=== PATIENT | female | born 1985 | race Two or more races ===

== ENCOUNTER 2025-06-28 11:27 | Emergency (ER) | payer MEDICAID, SELFPAY ==
[2025-06-28 11:27] VITALS: BMI 47.5
[2025-06-28 11:58] VITALS: BP 140/92; PULSE 86; RESP 18; TEMP 37.4; O2SAT 95
--- NOTE | 2025-06-28 12:21 | XR_ITS ---
Examination: Pelvic ultrasound, transabdominal, complete Technique: Transabdominal ultrasound of the pelvis performed using grayscale imaging Date and time of exam: June 28, 2025, 1237 hrs. Indications: Intermittent vaginal bleeding beginning today. Findings: Uterus 10.2 cm endometrial stripe 0.4 cm No uterine mass or intrauterine gestation. Right ovary 4.1 cm arterial flow. Left ovary 3.5 cm arterial flow Impression: Negative study
--- NOTE | 2025-06-28 12:23 | PD.EDRME ---
Rapid Medical Screening Exam E Arrival date/time: 06/28/25 11:27 This this is a 40-year-old female that comes into the emergency room with complaints of right lower pelvic pain. Patient reports that she currently is on her menstrual cycle. Patient states her menstrual cycle was irregular this past month. Patient states that when she was not on her menstrual cycle she was spotting. Patient reports history of ovarian cyst. Patient reports lower back pain patient states that this started mainly in March. 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 Patient states that the pain clinic got better on its own but recently started having more pain. Patient sitting more at home. Patient reports she is not working right now. Patient denies fever, nausea, vomiting, diarrhea. I have greeted and performed a focused initial assessment of this patient. Initial appropriate labs ordered at this time. A comprehensive ED assessment and evaluation of the patient and analysis of all test and completion of medical decision making process will be conducted by additional ED provider. . Chief Complaint: Urogenital-Female Time Seen by Provider: 06/28/25 12:02 Vital signs: Vital Signs Temperature 99.4 F 06/28/25 11:58 Pulse Rate 86 06/28/25 11:58 Respiratory Rate 18 06/28/25 11:58 Blood Pressure 140/92 H 06/28/25 11:58 Pulse Oximetry (%) 95 06/28/25 11:58 Oxygen Delivery Method Room Air 06/28/25 11:58
[2025-06-28 12:52] LABS: Collection Type, Urine Voided
[2025-06-28 13:13] LABS: HCG Qualitative,Urine Negative
[2025-06-28 13:14] LABS: Basophils # (Auto) 0.1 Thou/mm3 (0.0-0.2); Basophils % (Auto) 1 % (0-2.5); Eosinophils # (Auto) 0.1 Thou/mm3 (0.0-0.5); Eosinophils % (Auto) 1 % (0-10); Hematocrit 38.4 % (36.0-46.0); Hemoglobin 12.9 g/dL (12.0-16.0); Immature Granulocytes Auto 0.09 Thou/mm3 (0.00-0.00); Lymphocytes # (Auto) 3.2 Thou/mm3 (1.0-4.8); Lymphocytes % (Auto) 31 % (10-50); Mean Corpuscular HGB Conc 33.6 g/dl (31.0-37.0); Mean Corpuscular Hemoglobin 29.8 pg (25.0-35.0); Mean Corpuscular Volume 89 fL (80-100); Monocytes # (Auto) 0.9 Thou/mm3 (0.0-0.8); Monocytes % (Auto) 9 % (0-12); Neutrophils # (Auto) 6.1 Thou/mm3 (1.8-7.7); Neutrophils % (Auto) 58 % (37-80); Nucleated Red Blood Cell # 0.00 Thou/mm3 (0.00-0.00); Nucleated Red Blood Cell % 0 /100 WBC (0); Platelet Count 315 Thou/mm3 (140-440); RDW Standard Deviation 40.9 fL (36.4-46.3); Red Blood Count 4.33 Miln/mm3 (4.00-5.20); White Blood Count 10.5 Thou/mm3 (3.6-11.0)
[2025-06-28 13:18] LABS: Bilirubin,Urine Negative (Negative); Blood,Urine 3+ (Negative); Clarity,Urine Clear (Clear/Hazy); Color,Urine Lt-Yellow (Lt Yel-Yel); Culture Indicated,Urine Not Indicated; Glucose, Urine Negative (Negative); Ketones,Urine Negative (Negative); Leukocyte Esterase,Urine Positive (Negative); Nitrite,Urine Negative (Negative); PH,Urine 6.5 (5.0-7.0); Protein,Urine Negative (Neg - Trace); RBC,Urine 5 /hpf (0-3); Specific Gravity,Urine 1.018 (1.001-1.035); Squamous Epithelial Cell,Urine 1 /hpf (0-5); Urobilinogen,Urine Negative mg/dL (0.0-1.0); WBC,Urine 3 /hpf (0-5)
[2025-06-28 13:36] LABS: Alanine Aminotransferase 16 U/L (10-49); Albumin, Serum 4.2 gm/dL (3.5-5.0); Albumin/Globulin Ratio 1.2 (1.2-2.2); Alkaline Phosphatase 61 U/L (46-116); Anion Gap 11 (7-16); Aspartate Amino Transferase 18 U/L (0-34); BUN/Creatinine Ratio 13 Ratio (12-20); Bilirubin,Total 0.2 mg/dL (0.3-1.2); Blood Urea Nitrogen 8 mg/dL (9-23); Calcium 9.1 mg/dL (8.3-10.6); Calcium (Corrected) 9.1 mg/dL (8.5-10.1); Carbon Dioxide 25.1 mMol/L (20.0-31.0); Chloride 105 mMol/L (98-107); Creatinine (Component) 0.6 mg/dL (0.6-1.3); Estimated Creatinine Clearance 155.0 mL/min (>60); Globulin 3.5 gm/dL (2.3-3.5); Glucose 79 mg/dL (74-106); Osmolality,Calculated 278 (275-295); Potassium 3.5 mMol/L (3.4-5.1); Sodium 141 mMol/L (136-145); Total Protein 7.7 gm/dL (5.7-8.2); eGFR > 60 See Note
--- NOTE | 2025-06-28 14:12 | EDNOTE_ITS ---
ED Female Urogenital RME/HPI General Chief complaint: Urogenital-Female Stated complaint: PELVIC PAIN/SPOTTING x 1 MONTH Time Seen by Provider: 06/28/25 12:02 Arrival date/time: 06/28/25 11:27 RME / HPI RME / HPI Narrative: 06/28/25 11:27 This this is a 40-year-old female that comes into the emergency room with complaints of right lower pelvic pain. Patient reports that she currently is on her menstrual cycle. Patient states her menstrual cycle was irregular this past month. Patient states that when she was not on her menstrual cycle she was spotting. Patient reports history of ovarian cyst. Patient reports lower back pain patient states that this started mainly in March. 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 Patient states that the pain clinic got better on its own but recently started having more pain. Patient sitting more at home. Patient reports she is not working right now. Patient denies fever, nausea, vomiting, diarrhea. I have greeted and performed a focused initial assessment of this patient. Initial appropriate labs ordered at this time. A comprehensive ED assessment and evaluation of the patient and analysis of all test and completion of medical decision making process will be conducted by additional ED provider. . Related Data Allergies Allergy/AdvReac Type Severity Reaction Status Date / Time No Known Allergies Allergy Verified 06/28/25 11:29 Course Quality Measures none Orders Category Date Time Status US pelvic complete Stat Exams 06/28/25 12:21 Completed CBC Stat Lab 06/28/25 13:03 Completed Comprehensive Metabolic Panel Stat Lab 06/28/25 13:03 Completed HCG Qualitative,Urine Stat Lab 06/28/25 12:37 Completed Urinalysis, C/S if Indicated Stat Lab 06/28/25 12:37 Completed Vital Signs Vital signs: Vital Signs Temperature 99.4 F 06/28/25 11:58 Pulse Rate 86 06/28/25 11:58 Respiratory Rate 18 06/28/25 11:58 Blood Pressure 140/92 H 06/28/25 11:58 Pulse Oximetry (%) 95 06/28/25 11:58 Oxygen Delivery Method Room Air 06/28/25 11:58 Urogenital - Female MDM Narrative MDM Narrative:: Patient is a 40-year-old female that is in the emergency department with concerns of right-sided pelvic pain. Vital signs and exam as listed. Prior provider evaluated patient. Ordered labs pelvic ultrasound offered medication for symptom relief. Concern for ovarian torsion, ovarian cyst, , metabolic disturbance among others. Labs without acute hematologic or significant metabolic abnormality. Patient is non. Urinalysis without evidence of leuk esterase, 5 RBCs, 3 WBCs and bacteria. Less likely infected. Pelvic ultrasound remarkable. On re-evaluation patient symptoms well controlled, she is HD stable, NAD. Will dc to home with close return precautiosn and pcp follow up Patient data External records reviewed:: [facility] previous records Clinical information provided by:: patient Social determinants that could affect healthcare access:: none Patient has the following chronic illnesses:: none How is presenting disease/condition affected by chronic disease/condition?: no chronic disease Evaluation data The following diagnostics were reviewed and interpreted by me:: lab results and radiology exam(s) Lab and/or radiology exams considered but not ordered:: none Interpretation Summary: see mdm Medications / Prescriptions Medications or Prescriptions considered but not ordered:: none Medication administrations:: see below Consultations Consultation(s) initiated? (list below): No Diagnosis Urogenital Female Differential Diagnosis: other (see mdm ) Most likely diagnosis given after review of the tests above:: perlvic pain Admission Indicated Admission indicated?: not indicated Admission Request Was there a request for admission?: No Disposition Plan Disposition Plan: Discharge Discharge Attestation Discharge Attestation: The patient and all family members were given an opportunity to ask questions and understood the discharge instructions. Discharge instructions specifically effects, indications for sooner follow up or return to the emergency department, and the expected course of current diagnosis. Patient condition: Stable Discharge Plan Plan Patient Disposition: HOME (Self Care) Prescriptions/Referrals Referrals: Marisela Mckee MD [Primary Care Provider] - In 1 week Problem List Clinical Impression: Pelvic pain Patient/Caregiver Discharge Instructions Education Materials: Abdominal Pain Additional Instructions: It is important that you establish care with a sample maker original to discuss your abnormal menstrual cycles as well as for pelvic pain. Return immediately for worsening symptoms or new symptoms of concern Print Language: Comoran Stand Alone Forms: [employer] Info., Patient Portal Info Letter
--- NOTE | 2025-06-28 14:24 | EDNOTE_ITS ---
ED Female Urogenital RME/HPI General Chief complaint: Urogenital-Female Stated complaint: PELVIC PAIN/SPOTTING x 1 MONTH Time Seen by Provider: 06/28/25 12:02 Arrival date/time: 06/28/25 11:27 Limitations: no limitations RME / HPI RME / HPI Narrative: 06/28/25 11:27 This this is a 40-year-old female that comes into the emergency room with complaints of right lower pelvic pain. Patient reports that she currently is on her menstrual cycle. Patient states her menstrual cycle was irregular this past month. Patient states that when she was not on her menstrual cycle she was spotting. Patient reports history of ovarian cyst. Patient reports lower back pain patient states that this started mainly in March. 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 Patient states that the pain clinic got better on its own but recently started having more pain. Patient sitting more at home. Patient reports she is not working right now. Patient denies fever, nausea, vomiting, diarrhea. I have greeted and performed a focused initial assessment of this patient. Initial appropriate labs ordered at this time. A comprehensive ED assessment and evaluation of the patient and analysis of all test and completion of medical decision making process will be conducted by additional ED provider. DR. CORTEZ MAIN ED EVALUATION: 40-year-old female with a history of ovarian cysts presenting to the Emergency Department with one month of spotting and lower pelvic pain. She also reports associated low back pain. Denies fevers, nausea, vomiting, or recent illness. No prior surgeries. 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 Family history is notable for maternal endometriosis. Related Data Allergies Allergy/AdvReac Type Severity Reaction Status Date / Time No Known Allergies Allergy Verified 06/28/25 11:29 Review of Systems Review of Systems Systems Reviewed: All systems reviewed, normal except as documented Past Medical History Past Medical History RESPIRATORY: Positive Asthma Social History SMOKING STATUS: Never smoker SUBSTANCE USE: does not use ALCOHOL: Never ED Exam General Limitations: Present no limitations General appearance: Present alert and in no apparent distress Head Head exam: Present atraumatic, normocephalic and normal inspection Eye Eye exam: Present normal appearance, PERRL and EOMI ENT ENT exam: Present normal exam, normal oropharynx and mucous membranes moist Neck Neck exam: Present normal inspection, full ROM and trachea midline Chest Chest inspection: Present normal inspection and symmetric chest wall rise Respiratory Respiratory exam: Present normal lung sounds bilaterally Cardiovascular Cardiovascular exam: Present regular rate, normal rhythm and normal heart sounds Abdominal Exam Abdominal exam: Present soft and normal bowel sounds Extremities Exam Extremities exam: Present normal inspection and full ROM Back Exam Back exam: Present normal inspection and full ROM Neurological Exam Neurological exam: Present alert, oriented X3 and CN II-XII intact Psychiatric Psychiatric exam: Present normal affect and normal mood Skin Skin exam: Present warm, dry, intact and normal color Course Quality Measures none Orders Category Date Time Status US pelvic complete Stat Exams 06/28/25 12:21 Completed CBC Stat Lab 06/28/25 13:03 Completed Comprehensive Metabolic Panel Stat Lab 06/28/25 13:03 Completed HCG Qualitative,Urine Stat Lab 06/28/25 12:37 Completed Urinalysis, C/S if Indicated Stat Lab 06/28/25 12:37 Completed Vital Signs Vital signs: Vital Signs Temperature 99.4 F 06/28/25 11:58 Pulse Rate 86 06/28/25 11:58 Respiratory Rate 18 06/28/25 11:58 Blood Pressure 140/92 H 06/28/25 11:58 Pulse Oximetry (%) 95 06/28/25 11:58 Oxygen Delivery Method Room Air 06/28/25 11:58 Urogenital - Female MDM Narrative MDM Narrative:: Ruthy Catsro am scribing for and in the presence of Dr. Cortez. Patient data External records reviewed:: [facility] previous records Clinical information provided by:: patient Social determinants that could affect healthcare access:: none Patient has the following chronic illnesses:: History of ovarian cysts. Family history is notable for maternal endometriosis. How is presenting disease/condition affected by chronic disease/condition?: exacerbated by Evaluation data The following diagnostics were reviewed and interpreted by me:: lab results and radiology exam(s) Lab and/or radiology exams considered but not ordered:: none Interpretation Summary: See MDM narrative above. RADIOLOGY Procedure(s): US pelvic complete Accession Number(s): [id number] cc: Marisela Mckee MD; Cali Porras MD; Riddhi Juarez NP~ Examination: Pelvic ultrasound, transabdominal, complete Technique: Transabdominal ultrasound of the pelvis performed using grayscale imaging Date and time of exam: June 28, 2025, 1237 hrs. Indications: Intermittent vaginal bleeding beginning today. Findings: Uterus 10.2 cm endometrial stripe 0.4 cm No uterine mass or intrauterine gestation. Right ovary 4.1 cm arterial flow. Left ovary 3.5 cm arterial flow Impression: Negative study Dictated By: Cali Porras MD Medications / Prescriptions Medications or Prescriptions considered but not ordered:: none Medication administrations:: see above if any Consultations Consultation(s) initiated? (list below): No Diagnosis Urogenital Female Differential Diagnosis: other (Ovarian cyst rupture, endometriosis, dysfunctional uterine bleeding, and early .) Most likely diagnosis given after review of the tests above:: Pelvic pain Admission Indicated Admission indicated?: not indicated Admission Request Was there a request for admission?: No Disposition Plan Disposition Plan: Discharge Discharge Attestation Discharge Attestation: The patient and all family members were given an opportunity to ask questions and understood the discharge instructions. Discharge instructions specifically effects, indications for sooner follow up or return to the emergency department, and the expected course of current diagnosis. Patient condition: Stable Discharge Plan Plan Patient Disposition: HOME (Self Care) Prescriptions/Referrals Referrals: Marisela Mckee MD [Primary Care Provider] - In 1 week Problem List Clinical Impression: Pelvic pain Patient/Caregiver Discharge Instructions Education Materials: Abdominal Pain Additional Instructions: It is important that you establish care with a observer gravity prospecting to discuss your abnormal menstrual cycles as well as for pelvic pain. Return immediately for worsening symptoms or new symptoms of concern Print Language: Gambian Stand Alone Forms: [employer] Info., Patient Portal Info Letter
== END 2025-06-28 14:42 | disposition home or self-care (01) ==
PROVIDERS: Nurse Practitioner Family; Emergency Provider Emergency Medicine; PCP Internal Medicine
DX: R10.21 Pelvic and perineal pain right side (principal)
CPT/HCPCS: 36415; 76856; 80053; 81001; 81025; 85025; 99283